=== PATIENT | female | born 1950 | race African-American/Black ===

== ENCOUNTER 2017-01-01 08:55 | Inpatient (IN) | payer SELFPAY ==
[~2017-01-01] VITALS: Ht 160 cm; Wt 98.9 kg
[2017-01-01 09:33] LABS: Basophils # (auto) 0.1 uL; Basophils % (auto) 1.3 % (0.0-2.0); Eosinophils # (auto) 0.1 uL; Eosinophils % (auto) 1.4 % (0.0-7.0); Lymphocytes # (auto) 1.9 uL; Lymphocytes % (auto) 35.4 % (10.0-50.0); Mean Corpuscular Hemoglobin 23.4 pg (28.0-32.0); Mean Corpuscular Hgb Conc. 31.6 g/dL (32.0-36.0); Mean Corpuscular Volume 74.1 fL (80.0-100.0); Mean Platelet Volume 8.8 fL (6.9-10.8); Monocytes # (auto) 0.3 uL; Monocytes % (auto) 6.5 % (0.0-12.0); Neutrophils # (auto) 2.9 uL; Neutrophils % (auto) 55.4 % (37.0-80.0); Nucleated Red Blood Cells % 0.1 %; Platelet Count (auto) 286 10^3/uL (140-450); Red Cell Distribution Width 14.8 % (11.8-14.3); White Blood Cell 5.3 10^3/uL (4.4-10.8)
[2017-01-01 10:04] LABS: Albumin 3.4 g/dL (3.4-5.0); BUN/Creatinine Ratio 15.2; Bilirubin, Total 0.4 mg/dL (0.2-1.0); Potassium 3.9 mmol/L (3.5-5.1); Total Protein 7.4 g/dL (6.4-8.2)
[2017-01-01] MEDS ORDERED: SODIUM CHLORIDE 0.9% 1,000 ML IV ONE (11:15)
[2017-01-01] MEDS ORDERED: InsuLIN REG 1unit/0.01ml Soln (100units/ml) SC ONE (11:15)
[2017-01-01] MEDS ORDERED: ONDANSETRON HCL 4 MG/2 ML VIAL IV ONE (12:30)
[2017-01-01] MEDS ORDERED: cefTRIAXone 1GM/50ML D5W 50 ML IV ONE ×2 (12:45→13:00)
[2017-01-01] MEDS ORDERED: metroNIDAZOLE 500MG/100ML 100 ML IV ONE (12:45)
[2017-01-01] MEDS ORDERED: NITROGLYCERIN 0.4 MG SL TAB SL PRN (13:00)
[2017-01-01] MEDS ORDERED: MORPHINE SULF INJ 2 MG/ML SYRINGE 1ML IV PRN ×2 (13:00)
[2017-01-01] MEDS ORDERED: LORazepam 0.5 MG TAB PO PRN (13:00)
[2017-01-01] MEDS ORDERED: DEXTROSE (50%) 50ML SYRG IV PRN (13:00)
[2017-01-01] MEDS ORDERED: ACETAMINOPHEN 500 MG TAB PO PRN (13:00)
[2017-01-01 15:42] VITALS: BP 119/72
[2017-01-01 16:17] LABS: Urine Bilirubin Negative (Negative); Urine Blood Negative /uL (Negative); Urine Color Yellow (Yellow); Urine Glucose 3+ mg/dL (Normal); Urine Ketone Negative (Negative); Urine Nitrite Negative (Negative); Urine RBC 1 /hpf (0 - 4); Urine Squamous Epithelial Cell FEW /hpf (<5); Urine Urobilinogen Normal (Negative)
[2017-01-01 17:00] VITALS: BP 124/79
[2017-01-01] MEDS: ACCU-CHEK COMFORT CURVE STRIP VI SCH ×2 (17:00→22:07)
[2017-01-01 17:03] VITALS: BP 124/79
[2017-01-01] MEDS: SODIUM CHLORIDE 0.9% 1,000 ML IV SCH ×2 (17:16→20:35)
[2017-01-01] MEDS: FAMOTIDINE (10MG/ML) 2ML VL IV SCH (17:16)
[2017-01-01] MEDS: HYDROcodone-ACET 5/325MG TAB PO PRN (17:19)
[2017-01-01] MEDS: InsuLIN REG 1unit/0.01ml Soln (100units/ml) SC SCH ×2 (18:00→22:07)
[2017-01-01] MEDS: metroNIDAZOLE 500MG/100ML 100 ML IV SCH ×2 (18:30→20:34)
[2017-01-01 22:00] VITALS: BP 139/76
[2017-01-01] MEDS: TEMAZEPAM 15 MG CAP PO PRN (22:16)
[2017-01-01] MEDS: PROMETHAZINE HCL 25 MG/ML 1ML IV PRN (23:20)
[2017-01-02] MEDS: metroNIDAZOLE 500MG/100ML 100 ML IV SCH ×4 (00:48→19:43)
[2017-01-02] MEDS: FAMOTIDINE (10MG/ML) 2ML VL IV SCH ×2 (00:48→12:46)
[2017-01-02 05:28] VITALS: BP 123/77
[2017-01-02] MEDS: SODIUM CHLORIDE 0.9% 1,000 ML IV SCH ×2 (06:40→12:47)
[2017-01-02] MEDS: ACCU-CHEK COMFORT CURVE STRIP VI SCH ×4 (07:08→22:12)
[2017-01-02] MEDS: InsuLIN REG 1unit/0.01ml Soln (100units/ml) SC SCH ×4 (07:08→22:11)
[2017-01-02] MEDS: HYDROcodone-ACET 5/325MG TAB PO PRN ×2 (07:09→18:07)
[2017-01-02] MEDS: PROMETHAZINE HCL 25 MG/ML 1ML IV PRN ×2 (07:09→18:07)
[2017-01-02 08:58] VITALS: BP 145/83
[2017-01-02] MEDS: cefTRIAXone 1GM/50ML D5W 50 ML IV SCH (09:01)
[2017-01-02 10:38] LABS: Basophils # (auto) 0.1 uL; Eosinophils # (auto) 0.1 uL; Hemoglobin 12.2 g/dL (12.2-16.2); Monocytes # (auto) 0.3 uL; Neutrophils # (auto) 2.7 uL; Nucleated Red Blood Cells % 0.1 %
[2017-01-02 10:39] LABS: Basophils % (auto) 1.2 % (0.0-2.0); Eosinophils % (auto) 1.8 % (0.0-7.0); Lymphocytes # (auto) 1.6 uL; Lymphocytes % (auto) 33.9 % (10.0-50.0); Mean Corpuscular Hemoglobin 23.6 pg (28.0-32.0); Mean Corpuscular Hgb Conc. 31.4 g/dL (32.0-36.0); Mean Corpuscular Volume 75.4 fL (80.0-100.0); Mean Platelet Volume 8.9 fL (6.9-10.8); Monocytes % (auto) 5.9 % (0.0-12.0); Neutrophils % (auto) 57.2 % (37.0-80.0); Platelet Count (auto) 268 10^3/uL (140-450); Red Cell Distribution Width 15.1 % (11.8-14.3); White Blood Cell 4.7 10^3/uL (4.4-10.8)
[2017-01-02 12:48] VITALS: BP 126/68
[2017-01-02 16:41] VITALS: BP 135/81
[2017-01-02] MEDS: metFORMIN HYDROCHLORIDE 500 MG TAB PO SCH (17:46)
[2017-01-02 22:00] VITALS: BP 128/70
[2017-01-02] MEDS: TEMAZEPAM 15 MG CAP PO PRN (22:12)
[2017-01-03] VITALS (7 sets, daily range): BP systolic 126–166; BP diastolic 75–99
[2017-01-03] MEDS: FAMOTIDINE (10MG/ML) 2ML VL IV SCH ×2 (01:29→13:44)
[2017-01-03] MEDS: metroNIDAZOLE 500MG/100ML 100 ML IV SCH ×4 (01:29→20:14)
[2017-01-03] MEDS: HYDROcodone-ACET 5/325MG TAB PO PRN ×4 (01:37→21:10)
[2017-01-03 06:41] LABS: BUN/Creatinine Ratio 11.1; Calcium 8.3 mg/dL (8.5-10.1); Potassium 4.1 mmol/L (3.5-5.1)
[2017-01-03] MEDS: ACCU-CHEK COMFORT CURVE STRIP VI SCH ×4 (06:50→22:00)
[2017-01-03] MEDS: InsuLIN REG 1unit/0.01ml Soln (100units/ml) SC SCH ×4 (06:50→22:00)
[2017-01-03] MEDS: metFORMIN HYDROCHLORIDE 500 MG TAB PO SCH (07:44)
[2017-01-03] MEDS: PROMETHAZINE HCL 25 MG/ML 1ML IV PRN ×3 (09:50→21:10)
[2017-01-03] MEDS: cefTRIAXone 1GM/50ML D5W 50 ML IV SCH (09:50)
[2017-01-03] MEDS: SODIUM CHLORIDE 0.9% 1,000 ML IV SCH (13:44)
[2017-01-03] MEDS ORDERED: hydrALAZINE HCL 20 MG/ML VL IV PRN (14:45)
[2017-01-03] MEDS ORDERED: IOHEXOL 300 MG/ML 100ML BOTTLE IJ ONE (14:46)
[2017-01-03] MEDS ORDERED: GASTROGRAFIN 30 ML SOL ONE (14:47)
[2017-01-03] MEDS ORDERED: metroNIDAZOLE 500MG/100ML 100 ML IV SCH (22:00)
[2017-01-04] MEDS: FAMOTIDINE (10MG/ML) 2ML VL IV SCH ×2 (00:47→12:30)
[2017-01-04] MEDS: metroNIDAZOLE 500MG/100ML 100 ML IV SCH ×2 (01:54→09:08)
[2017-01-04] MEDS: SODIUM CHLORIDE 0.9% 1,000 ML IV SCH (03:19)
[2017-01-04] MEDS: HYDROcodone-ACET 5/325MG TAB PO PRN ×2 (04:41→11:05)
[2017-01-04] MEDS: PROMETHAZINE HCL 25 MG/ML 1ML IV PRN ×2 (04:42→09:17)
[2017-01-04 05:00] VITALS: BP 145/72
[2017-01-04] MEDS: ACCU-CHEK COMFORT CURVE STRIP VI SCH ×2 (06:43→12:08)
[2017-01-04] MEDS: InsuLIN REG 1unit/0.01ml Soln (100units/ml) SC SCH ×2 (06:43→12:17)
[2017-01-04 08:00] VITALS: BP 147/81
[2017-01-04 09:12] VITALS: BP 147/81
[2017-01-04] MEDS: cefTRIAXone 1GM/50ML D5W 50 ML IV SCH (09:42)
[2017-01-04] MEDS ORDERED: DIAZ10TA PO (11:22)
[2017-01-04] MEDS ORDERED: HYDR-4663 PO ×2 (11:22→14:12)
[2017-01-04] MEDS ORDERED: OLME40TA30 PO ×3 (11:41→13:18)
[2017-01-04] MEDS ORDERED: OLME40TA27 PO (11:41)
[2017-01-04 11:46] VITALS: BP 146/86
[2017-01-04] MEDS ORDERED: METR500T PO (13:14)
[2017-01-04] MEDS ORDERED: LEVO500T21 PO (13:14)
[2017-01-04] MEDS ORDERED: METF-370 PO (13:14)
[2017-01-04] MEDS ORDERED: LOSARTAN POTASSIUM 25 MG TAB PO ONE (13:15)
[2017-01-04 14:41] LABS: Calcium 8.9 mg/dL (8.5-10.1); Potassium 3.4 mmol/L (3.5-5.1)
[2017-01-04 14:42] LABS: BUN/Creatinine Ratio 7.7
[2017-01-04 15:18] VITALS: BP 142/74
[2017-01-04] MEDS ORDERED: POTASSIUM CHL 20 Meq TABLET PO ONE (17:00)
== END 2017-01-04 16:30 | disposition home or self-care (01) | DRG 395 ==
LOC: ER 08:55 → TELE 08:56 → TELE-E-ADS 14:24 → TELE-WESTW 16:30
PROVIDERS: ADMIT Internal Medicine; ATTEND Internal Medicine
DX: K65.4 Sclerosing mesenteritis (principal); E11.65 Type 2 diabetes mellitus with hyperglycemia; I10 Essential (primary) hypertension; E66.9 Obesity, unspecified; G89.29 Other chronic pain; M54.5 Low back pain; F41.9 Anxiety disorder, unspecified; G47.00 Insomnia, unspecified; Z90.710 Acquired absence of both cervix and uterus; Z68.38 Body mass index [BMI] 38.0-38.9, adult; Z83.3 Family history of diabetes mellitus; Z90.89 Acquired absence of other organs
CPT/HCPCS: 36415; 71010; 74176; 74177; 80048; 80053; 80061; 81001; 82962; 83036; 83735; 85025; 96361; 96365; 96375; 99291; J0696; J1815; J2405; J3490

== ENCOUNTER 2018-06-13 03:36 | Emergency (ER) | payer SELFPAY ==
[~2018-06-13] VITALS: Ht 160 cm; Wt 83.5 kg
[~2018-06-13 03:36] MED LIST: DIAZ10TA PO; HYDR-4683 PO; LEVO500T21 PO; METF-370 PO; METR500T PO; OLME40TA30 PO
[2018-06-13 04:06] VITALS: BP 119/68
[2018-06-13] MEDS ORDERED: ONDANSETRON ODT 4 MG TAB PO ONE (05:15)
[2018-06-13] MEDS ORDERED: ALBUTEROL SULF 2.5 MG/0.5ML(0.5%) NEB SOLN NEB ONE (05:15)
[2018-06-13] MEDS ORDERED: IPRATROPIUM BROM 0.5 MG/2.5ML INH SOL NEB ONE (05:15)
[2018-06-13] MEDS ORDERED: PROMETHAZINE-DM 5 ML ORAL SYRUP PO ONE (05:15)
== END 2018-06-13 05:44 | disposition home or self-care (01) ==
LOC: ER 03:42
DX: B34.9 Viral infection, unspecified (principal); I10 Essential (primary) hypertension; Z90.710 Acquired absence of both cervix and uterus
CPT/HCPCS: 82962; 94640; 99283; J7611; J7644; Q0162